=== PATIENT | female | born 1985 | race Caucasian/White ===

== ENCOUNTER 2017-11-24 15:05 | Inpatient (IN) | payer BC, SELFPAY ==
[2017-11-24 15:19] VITALS: BMI 24.5
[2017-11-24] MEDS: Lactated Ringers 1,000 ML 50 ML IV ×2 (15:40→16:50)
[2017-11-24 16:09] LABS: Hematocrit 35.8 % (37-47); Hemoglobin 12.2 g/dl (12.0-15.0); Mean Corp Hgb Conc 34.1 g/gl (32-36); Mean Corpuscular Hgb 30.7 pg (27.0-32.0); Mean Corpuscular Volume 90.2 fL (81-99); Mean Platelet Vol. 10.7 fl (6.2-12.0); Platelet Count 205 K/mm3 (150-450); RBC Distribution Width CV 13.6 % (11.6-14.6); RBC Distribution Width SD 43.9 fl (35.1-43.9); Red Blood Count 3.97 M/mm3 (4.2-5.4); White Blood Count 12.1 K/mm3 (4.4-11.0)
[2017-11-24 16:16] LABS: Scan Indicated on CBC? Y/N NO
[2017-11-24] MEDS: Oxytocin 30 units/NS 500 ml 30 UNITS/500 ML IV.SOLN 334 UNITS IV (19:16)
--- NOTE | 2017-11-24 19:27 | PCM.HP.OB ---
(1) Active labor at term Status: Acute (2) Supervision of other high-risk Status: Acute Comment: ALANA from [place] CARLIT[place] 11/19/17 boy PC [facility] [place] (3) Abnormal genetic test during Status: Acute Comment: normal NIPT recommend serial US at end of History Date of Admission: 11/24/17 Gestational age: 40.5 History of this : 32 yo @ 40w5d presents IAL 5 cm dilated Pertinent Past Medical History: negative PSH: negative ob history previous term uncomplicated labs: normal and negative Allergies No Known Allergies Allergy (Unverified 11/24/17 14:43) Current Medications Acetaminophen (Tylenol) 325 - 650 mg PO Q4H PRN PRN PRN Reason: PAIN OR FEVER >100.4F Al Hydroxide/Mg Hydroxide (Mylanta Ii) 15 - 30 ml PO Q4H PRN PRN PRN Reason: INDIGESTION Citric Acid/Sodium Citrate (Bicitra) 30 ml PO UD PRN Lactated Ringer's () 1,000 mls @ 50 mls/hr IV .Q20H ASHVIN Last Admin: 11/24/17 16:50 Dose: 50 mls/hr Naloxone HCl 4 mg/ Dextrose 504 mls @ 0 mls/hr IV PRN PRN; Protocol PRN Reason: TO MAINTAIN RR>10 Nalbuphine HCl (Nubain) 5 - 10 mg IV Q3H PRN PRN PRN Reason: PAIN (4-10/10) Nalbuphine HCl (Nubain) 5 mg IV Q3H PRN PRN Reason: ITCHING Stop: 11/25/17 17:36 Naloxone HCl (Narcan) 0.2 mg IV Q1M PRN PRN Reason: RR<10 AND PT UNRESPONSIVE Stop: 11/25/17 17:36 Ondansetron HCl (Zofran) 4 mg IV Q8H PRN PRN PRN Reason: NAUSEA Promethazine HCl (Phenergan (Ll)) 6.25 - 12.5 mg IV Q4H PRN PRN; Protocol PRN Reason: IF NAUSEA PERSISTS Sodium Chloride () 5 - 15 ml IV UD ASHVIN Last Admin: 11/24/17 17:25 Dose: Not Given Smoking Status: Never smoker Alcohol: None Drug Use: none Number of Fetus(es): 1 - 130s moderate variability reactive Review of Systems Constitutional: Denies: Chills, Fever, Weight Change HEENT: Denies: Head Aches, Sinus Congestion, Sinus Drainage Cardiovascular: Denies: Chest Pain, Palpitations Respiratory: Denies: Cough, Shortness of breath at rest, Sputum production Gastrointestinal: Reports: Abdominal Pain. Denies: Nausea, Vomiting Genitourinary: Denies: Dysuria Musculoskeletal: Denies: Joint Pain, Joint Tenderness Skin: Denies: Rash, Wounds Neurological: Denies: Numbness, Tingling, Focal weakness Psychiatric: Denies: Anxiety, Depression, Homicidal Ideations, Suicidal Ideations Hematologic/ Lymphatic: Denies: Easy Bruising, Easy Bleeding Physical Exam General: Alert, Oriented x3, No apparent distress Cardiovascular: Regular rate Lungs: Normal air movement Abdomen: Soft, Gravid Estimated gestational size: Appropriate for gestational size Presentation: Cephalic Cervix Dilation (cm): 5 Station: -1 Effacement (%): 90 Assessment/Plan Active and Suspected Problems (Last Reviewed 11/24/17 @ 14:43 by Hilary Elena) Active labor at term (Acute) 32 yo @ 40w5d IAL admit epi and expectant management
--- NOTE | 2017-11-24 19:30 | PCM.OB.VAG ---
(1) Active labor at term Status: Acute (2) Supervision of other high-risk Status: Acute Comment: ALANA from [place] [facility] 11/19/17 boy PC [facility] [place] (3) Abnormal genetic test during Status: Acute Comment: normal NIPT recommend serial US at end of (4) Vaginal delivery Status: Acute Vaginal Delivery Maternal Presentation: Active Labor Amniotic Membrane Rupture Type: Spontaneous Amniotic Fluid Description: Clear Final CARLITOS: 11/19/17 Gestational age: 40 Weeks and 5 Days Date of Procedure: 11/24/17 Pre-Operative Diagnosis: ial Post-Operative Diagnosis: same Surgery/ Procedure Performed: Spontaneous Vaginal Delivery Type of Anesthesia: Epidural Description of Procedure: isabel delivered without complication placed on maternal abdomen delayed cord clamping, small first degree perineal laceration and blood vessel seen at urethra- stitched with a single stitch and the perineal laceration repaired with 3-0 rapide/ ebl 200 Presentation: ISABEL Placental Delivery Description: Spontaneous Placenta Disposition: [facility] Cord Vessel Description: 3 Vessels Cord Entanglement: None Estimated Blood Loss: 200 A gender: Male Episiotomy Description: None Laceration: Perineal Extension/lac, 1st degree Medications given after delivery: IV Pitocin Complications: None
--- NOTE | 2017-11-24 19:33 | OP.PCM_ITS ---
(1) Active labor at term Status: Acute (2) Supervision of other high-risk Status: Acute Comment: ALANA from [place] CARLIT[facility] 11/19/17 boy PC [facility] [place] (3) Abnormal genetic test during Status: Acute Comment: normal NIPT recommend serial US at end of (4) Vaginal delivery Status: Acute Vaginal Delivery Maternal Presentation: Active Labor Amniotic Membrane Rupture Type: Spontaneous Amniotic Fluid Description: Clear Final CARLITOS: 11/19/17 Gestational age: 40 Weeks and 5 Days Date of Procedure: 11/24/17 Pre-Operative Diagnosis: ial Post-Operative Diagnosis: same Surgery/ Procedure Performed: Spontaneous Vaginal Delivery Type of Anesthesia: Epidural Description of Procedure: isabel delivered without complication placed on maternal abdomen delayed cord clamping, small first degree perineal laceration and blood vessel seen at urethra- stitched with a single stitch and the perineal laceration repaired with 3-0 rapide/ ebl 200 Presentation: ISABEL Placental Delivery Description: Spontaneous Placenta Disposition: [facility] Cord Vessel Description: 3 Vessels Cord Entanglement: None Estimated Blood Loss: 200 A gender: Male Episiotomy Description: None Laceration: Perineal Extension/lac, 1st degree Medications given after delivery: IV Pitocin Complications: None
[2017-11-24] MEDS: Oxytocin 30 units/NS 500 ml 30 UNITS/500 ML IV.SOLN 167 UNITS IV (19:46)
[2017-11-25 01:15] VITALS: BP 103/56; PULSE 61; RESP 18; TEMP 36.9; O2SAT 100
[2017-11-25 03:32] VITALS: BP 104/64; PULSE 72; RESP 18; TEMP 36.8; O2SAT 100
[2017-11-25 08:30] VITALS: BP 97/63; PULSE 86; RESP 16; TEMP 36.5; O2SAT 97
[2017-11-25 12:00] VITALS: BP 104/62; PULSE 70; RESP 16; TEMP 37.1; O2SAT 97
--- NOTE | 2017-11-25 13:21 | PCM.PN.OB ---
Patient Problems: Active and Suspected Problems (Last Reviewed 11/24/17 @ 14:43 by Hilary Elena) Active labor at term (Acute) Vaginal delivery (Acute) Subjective: doing well n ocomplaints - Physical Exam General: Alert, Oriented x3 Vital Signs Temp Pulse Resp BP Pulse Ox 98.8 F 70 16 104/62 97 11/25/17 12:00 11/25/17 12:00 11/25/17 12:00 11/25/17 12:00 11/25/17 12:00 Oxygen Delivery Method Room Air Weight: 156 lb 4.924 oz Body Mass Index (BMI) 24.5 Intake and Output for Last 24 Hours 11/23/17 11/24/17 11/25/17 23:59 23:59 23:59 Intake Total 1841 / 1841 Output Total 300 / 300 900 / 900 Balance 1541 / 1541 -900 / -900 Laboratory Tests Past 24 Hrs 11/24/17 11/24/17 15:40 15:40 WBC 12.1 H RBC 3.97 L Hgb 12.2 Hct 35.8 L MCV 90.2 MCH 30.7 MCHC 34.1 RDW 13.6 RDW Differential 43.9 Plt Count 205 MPV 10.7 Blood Type O POSITIVE Antibody Screen NEGATIVE Assessment/Plan Active and Suspected Problems (Last Reviewed 11/24/17 @ 14:43 by Hilary Elena) Active labor at term (Acute) Vaginal delivery (Acute) s/p routine care doing well
[2017-11-25 16:00] VITALS: BP 106/62; PULSE 78; RESP 16; TEMP 36.4; O2SAT 98
[2017-11-25 20:08] VITALS: BP 98/72; PULSE 102; RESP 16; TEMP 37.1; O2SAT 99
[2017-11-26 01:05] VITALS: BP 98/63; PULSE 79; RESP 16; TEMP 37.3; O2SAT 98
--- NOTE | 2017-11-26 05:33 | PCM.DCVAG ---
Additional Instructions: If you experience any of the following, contact your healthcare provider. Bleeding that soaks a pad every hour for 2 hours Fever 100.4 or higher Unrelieved incision or abdominal pain Swelling, redness, discharge or bleeding from your incision or episiotomy site Your incision begins to separate Problems urinating (including inability to urinate or burning while urinating). Visual changes Severe headache Flu-like symptoms Pain or redness in one of both of your breasts Pain, warmth, tenderness or swelling in your legs, especially the calf area Frequent nausea and vomiting Symptoms of depression or anxiety If you experience any of the following, call 911 or go to the nearest Emergency Room. Chest pain Problems breathing Seizure activity Partial or complete paralysis of a body part, slurred speech, weakness or drooping of the face, or a sudden inability to walk or hold your balance Allergies/Adverse Reactions: Allergies No Known Allergies Allergy (Unverified 11/24/17 14:43) Medications to take at Discharge vitamin,calcium,xfmnncvb-gkeb-wwxoe acid tablet 1 tab PO QDAY 10/01/17 Please Follow Up With: Amada Flood MD - [phone] When: Call to make an appointment with your doctor in 6 weeks. If you had elevated Blood pressure or 4th degree laceration you will need to be seen in 2 weeks. Primary Care Physician: Care Physician,No Primary [Primary Care Provider] -
--- NOTE | 2017-11-26 05:34 | DCINST_ITS ---
Additional Instructions: If you experience any of the following, contact your healthcare provider. * Bleeding that soaks a pad every hour for 2 hours * Fever 100.4 or higher * Unrelieved incision or abdominal pain * Swelling, redness, discharge or bleeding from your incision or episiotomy site * Your incision begins to separate * Problems urinating (including inability to urinate or burning while urinating) . * Visual changes * Severe headache * Flu-like symptoms * Pain or redness in one of both of your breasts * Pain, warmth, tenderness or swelling in your legs, especially the calf area * Frequent nausea and vomiting * Symptoms of depression or anxiety If you experience any of the following, call 911 or go to the nearest Emergency Room. * Chest pain * Problems breathing * Seizure activity * Partial or complete paralysis of a body part, slurred speech, weakness or drooping of the face, or a sudden inability to walk or hold your balance Allergies/Adverse Reactions: Allergies No Known Allergies Allergy (Unverified 11/24/17 14:43) Medications to take at Discharge vitamin,calcium,xlwzyiuf-xcrj-qogar acid tablet 1 tab PO QDAY 10/01/17 Please Follow Up With: Amada Flood MD - [phone] When: Call to make an appointment with your doctor in 6 weeks. If you had elevated Blood pressure or 4th degree laceration you will need to be seen in 2 weeks. Primary Care Physician: Care Physician,No Primary [Primary Care Provider] -
[2017-11-26 08:28] VITALS: BP 92/64; PULSE 88; RESP 18; TEMP 36.4; O2SAT 97
--- NOTE | 2017-11-26 09:34 | PN.OBGYN_ITS ---
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 V - Physical Exam General: Alert, Oriented x3 Abdomen: - - FF below U Vital Signs Temp Pulse Resp BP Pulse Ox 97.6 F L 88 18 92/64 97 11/26/17 08:28 11/26/17 08:28 11/26/17 08:28 11/26/17 08:28 11/26/17 08:28 Oxygen Delivery Method Room Air Weight: 156 lb 4.924 oz Body Mass Index (BMI) 24.5 Intake and Output for Last 24 Hours 11/24/17 11/25/17 11/26/17 23:59 23:59 23:59 Intake Total 1841 / 1841 Output Total 300 / 300 900 / 900 Balance 1541 / 1541 -900 / -900 Assessment/Plan Active and Suspected Problems (Last Reviewed 11/24/17 @ 14:43 by Hilary Elena) Active labor at term (Acute) Vaginal delivery (Acute) s/p routine care doing well dc home
--- NOTE | 2017-11-26 10:36 | NURSING ---
2240 While rounding, Mom states that nursing has gone well. Mom is a 2/1 and nursed well with previous child. Encouraged to call if any further questions or concerns with feedings. Rustam BERNAL
== END 2017-11-26 11:35 | disposition home or self-care (01) | DRG 775 ==
PROVIDERS: Admitting Provider Obstetrics & Gynecology; Visit Provider Obstetrics & Gynecology
DX: O70.0 First degree perineal laceration during delivery (principal); O28.5 Abnormal chromosomal and genetic finding on antenatal screening of mother; Z3A.40 40 weeks gestation of pregnancy; Z37.0 Single live birth
CPT/HCPCS: 59050; 85027; 86850; 86900; 99218; J7120; A4216; G0378

== ENCOUNTER → 2019-01-28 13:46 | Outpatient (CLI) | payer BC, SELFPAY ==
[2019-01-20 15:28] VITALS: BMI 19.8
--- NOTE | 2019-01-28 13:49 | US_ITS ---
STUDY: ULTRASOUND TRANSVAGINAL CLINICAL: Female, 33 years old. IUD check. TECHNIQUE: Transabdominal and Transvaginal COMPARISON: None. FINDINGS: Normal uterine size measuring 6.5 x 4.0 x 3.4 cm in maximal craniocaudal dimension. There are no myometrial masses. Normal endometrial thickness measuring 4.5 mm. Endometrial echoes are hypoechoic. IUD seen in normal position. Normal uterine cervix. Normal right ovary, measuring 2.9 x 1.9 x 2.9 cm. There are multiple follicles without a dominant cyst. Normal left ovary, measuring 3.5 x 3.6 x 2.4 cm. There is a 2.8 cm cyst. There is no free fluid in the pelvis. Polycystic ovary disease: No. US/Transvaginal Non- IMPRESSION: IUD in typical location and no abnormalities found. Electronically Signed: Juan Jose Layne MD at 15:30 EDT , Service support ,
--- NOTE | 2019-01-28 13:49 | US_ITS ---
STUDY: ULTRASOUND TRANSVAGINAL CLINICAL: Female, 33 years old. IUD check. TECHNIQUE: Transabdominal and Transvaginal COMPARISON: None. FINDINGS: Normal uterine size measuring 6.5 x 4.0 x 3.4 cm in maximal craniocaudal dimension. There are no myometrial masses. Normal endometrial thickness measuring 4.5 mm. Endometrial echoes are hypoechoic. IUD seen in normal position. Normal uterine cervix. Normal right ovary, measuring 2.9 x 1.9 x 2.9 cm. There are multiple follicles without a dominant cyst. Normal left ovary, measuring 3.5 x 3.6 x 2.4 cm. There is a 2.8 cm cyst. There is no free fluid in the pelvis. Polycystic ovary disease: No. US/Pelvic (Non ) IMPRESSION: IUD in typical location and no abnormalities found. Electronically Signed: Juan Jose Layne MD at 15:30 EDT , Service support ,
== END ==
PROVIDERS: Referring Provider Nurse Practitioner Women's Health; Visit Provider Nurse Practitioner Women's Health
DX: Z30.431 Encounter for routine checking of intrauterine contraceptive device (principal)
CPT/HCPCS: 76830; 76856

== ENCOUNTER → 2020-09-27 | Outpatient (CLI) | payer BC, SELFPAY ==
[2020-09-27 15:21] VITALS: BMI 20.7
[2020-10-03 21:36] LABS: HPV APTIMA, High Risk Negative (Negative)
== END | disposition home or self-care (01) ==
PROVIDERS: Referring Provider Obstetrics & Gynecology; Visit Provider Obstetrics & Gynecology
DX: Z12.4 Encounter for screening for malignant neoplasm of cervix (principal)
CPT/HCPCS: 87624; 88175; G0145

== ENCOUNTER → 2021-10-11 12:46 | Outpatient (CLI) | payer BC, SELFPAY ==
[2021-10-11 13:49] LABS: NATERA MAILED SPECIMEN
== END ==
PROVIDERS: Referring Provider Obstetrics & Gynecology; Visit Provider Obstetrics & Gynecology
DX: Z13.9 Encounter for screening, unspecified (principal); Z80.0 Family history of malignant neoplasm of digestive organs
CPT/HCPCS: 36415

== ENCOUNTER → 2024-06-30 | Outpatient (CLI) | payer BC, SELFPAY ==
--- NOTE | 2024-06-30 17:07 | BI_ITS ---
MAMMOGRAPHY - BILATERAL SCREENING REASON FOR EXAM: Female, 39 years old. Routine annual screening examination. PERTINENT HISTORY: Non-contributory. TECHNIQUE: Digital bilateral breast vanessa (3D mammographic acquisition) in the CC and MLO projections. 2-D mediolateral oblique (MLO) and craniocaudad (CC) views of both breasts were obtained. CAD: Full Field Digital Mammography with Computer Added Detection was performed. COMPARISON: None. Baseline examination. FINDINGS: Breast Composition: The breasts are extremely dense, which lowers the sensitivity of mammography. There are no dominant masses or suspicious calcifications. No other significant abnormalities are identified. BI/SCRN MAMM (CAD)W/VANESSA BILAT IMPRESSION: Negative screening mammogram. Yearly followup mammogram recommended. (A) ASSESSMENT CATEGORY: BIRADS Category 1: Negative. A letter regarding these results will be sent to the patient by the facility within 30 days. Approximately 10% of breast cancers are not detected by mammography. A normal mammogram should not delay biopsy of a clinically suspicious abnormality. [id number] Electronically Signed: Chandrakant Abrams MD at 8:17 EDT ,
== END | disposition home or self-care (01) ==
PROVIDERS: PCP Family Medicine; Referring Provider Obstetrics & Gynecology; Visit Provider Obstetrics & Gynecology
DX: Z12.31 Encounter for screening mammogram for malignant neoplasm of breast (principal)
CPT/HCPCS: 77063; 77067

== ENCOUNTER → 2024-12-09 | Outpatient (CLI) | payer BC, SELFPAY ==
[2024-12-15 10:08] LABS: HPV APTIMA, High Risk Negative (Negative)
== END | disposition home or self-care (01) ==
LOC: LABSPEC 16:31
PROVIDERS: PCP Family Medicine; Referring Provider Obstetrics & Gynecology; Visit Provider Obstetrics & Gynecology
DX: Z12.4 Encounter for screening for malignant neoplasm of cervix (principal)
CPT/HCPCS: 87624; 88175; G0145

== ENCOUNTER → 2025-09-19 | Outpatient (CLI) | payer BC, SELFPAY ==
--- NOTE | 2025-09-19 10:29 | BI_ITS ---
EXAM: SCRN MAMM (CAD)W/VANESSA BILAT DATE: 09/19/2025 CLINICAL HISTORY: F, Age 40 y/o , SCREENING MAMMOGRAM TECHNIQUE: Procedure Code: [id number] Modality: MG Procedure: SCRN MAMM (CAD)W/VANESSA BILAT COMPARISON: Prior exam(s) dated June 30, 2024. FINDINGS: TISSUE DENSITY: The breasts are heterogeneously dense, which may obscure small masses. Bilateral Breast Mammographic Findings: No significant masses, calcifications or other abnormalities are identified. Stable nodular densities are seen in both breasts. BI/SCRN MAMM (CAD)W/VANESSA BILAT IMPRESSION: Benign screening mammogram. OVERALL FINAL ASSESSMENT BI-RADS 2: BENIGN RECOMMENDATION: Routine annual follow-up in 1 Year Additional Recommendation none A letter with findings and recommendations will be mailed to the patient. Reading Location: [id number]
== END | disposition home or self-care (01) ==
LOC: OPBI 10:28
PROVIDERS: PCP Family Medicine; Referring Provider Obstetrics & Gynecology; Visit Provider Obstetrics & Gynecology
DX: Z12.31 Encounter for screening mammogram for malignant neoplasm of breast (principal)
CPT/HCPCS: 77063; 77067